=== PATIENT | female | born 1955 | race Caucasian/White ===

== ENCOUNTER → 2020-01-07 08:30 | Outpatient (CLI) | payer OTHER, SELFPAY ==
[2020-01-07 10:08] LABS: Add Manual Diff / Slide Review NO; Basophils Absolute Auto 0 /uL (0-100); Basophils Percent Auto 0.3 % (0-2); Eosinophils Absolute Auto 100 /uL (0-450); Eosinophils Percent Auto 1.4 % (2-4); Hematocrit 39.3 % (36-46); Hemoglobin 13.4 g/dL (12.0-16.0); Lymphocytes Absolute Auto 1600 /uL (1100-4500); Lymphocytes Percent Auto 35.6 % (25-40); Mean Corpuscular HGB Conc 34.1 % (30-36); Mean Corpuscular Hemoglobin 32.6 PG (26-34); Mean Corpuscular Volume 95.5 fL (80-100); Monocytes Absolute Auto 400 /uL (0-900); Monocytes Percent Auto 8.4 % (3-14); Neutrophils Absolute Auto 2400 /uL (1500-7000); Neutrophils Percent Auto 54.3 % (50-75); Platelet Count 112 X10^3/uL (150-400); Red Blood Cell Count 4.11 X10^6/uL (4.0-5.2); Red Cell Distribution Width 13.5 % (11.6-14.8); White Blood Cell Count 4.4 X10^3/uL (4.5-11.0)
[2020-01-07 10:45] LABS: Alanine Aminotransferase 52 IU/L (<35); Albumin 4.3 g/dL (3.5-5.0); Albumin Globulin Ratio 1.2 (1.0-2.8); Alkaline Phosphatase 89 U/L (38-126); Aspartate Aminotransferase 58 IU/L (14-36); BUN Creatinine Ratio 17.1 (6-22); Bilirubin Total 0.9 mg/dL (0.2-1.3); Blood Urea Nitrogen 12 mg/dL (7-17); Calcium 9.5 mg/dL (8.4-10.2); Carbon Dioxide 29 mmol/L (22-32); Chloride 104 mmol/L (98-107); Cholesterol 190 mg/dL (140-199); Estimated Glomerular Filt Rate > 60.0 mL/min (>60); Globulin 3.6 g/dL (1.7-4.1); Glucose 91 mg/dL (80-110); HDL Cholesterol 58 mg/dL (40-60); HEMOLYSIS < 15 (0-50); LDL Cholesterol Calculated 107 mg/dL (<100); Potassium 4.2 mmol/L (3.4-5.1); Sodium 140 mmol/L (137-145); Total Protein 7.9 g/dL (6.3-8.2); Triglycerides 124 mg/dL (35-150)
[2020-01-07 11:01] LABS: TSH w/ Reflex to FT4 2.01 uIU/mL (0.47-4.68)
== END ==
PROVIDERS: Referring Provider Internal Medicine; Visit Provider Internal Medicine
DX: E78.2 Mixed hyperlipidemia (principal); I10 Essential (primary) hypertension; E66.9 Obesity, unspecified
CPT/HCPCS: 36415; 80053; 80061; 84443; 85025

== ENCOUNTER → 2020-02-11 10:32 | Outpatient (CLI) | payer OTHER, SELFPAY ==
--- NOTE | 2020-02-11 | DI.RAD.S_ITS ---
PROCEDURE: XR TOE LT MIN 2V INDICATIONS: LEFT BIG TOE PAIN TECHNIQUE: 3 views of the 1st toe(s) acquired. COMPARISON: None. FINDINGS: Bones: No fractures or dislocations. No suspicious bony lesions. Soft tissues: No suspicious soft tissue densities. IMPRESSION: No trauma found, no evidence of osteomyelitis, source of current pain is not seen. Dictated by: Michael Sal M.D. on 02/11/2020 at 11:26 Approved by: Michael Sal M.D. on 02/11/2020 at 11:27
== END ==
PROVIDERS: PCP Internal Medicine; Referring Provider Internal Medicine; Visit Provider Internal Medicine
DX: S90.112A Contusion of left great toe without damage to nail, initial encounter (principal); M79.675 Pain in left toe(s); X58.XXXA Exposure to other specified factors, initial encounter
CPT/HCPCS: 73660

== ENCOUNTER → 2020-02-14 09:16 | Outpatient (CLI) | payer OTHER, SELFPAY ==
--- NOTE | 2020-02-14 | DI.US.S_ITS ---
PROCEDURE: US ABDOMEN COMPLETE INDICATIONS: ELEVATED LFTS TECHNIQUE: Real-time scanning was performed of the abdominal and retroperitoneal organs, with image documentation. COMPARISON: None. FINDINGS: Liver: Liver is normal in size and homogeneous in echotexture. The main portal vein is patent and measures 1.3 cm. Gallbladder: No findings of gallstones or sludge are seen. The gallbladder wall is not thickened, measuring 3 mm or less. No specific pericholecystic fluid is seen. The sonographic Lebron sign is negative. Biliary ducts: Intrahepatic bile ducts are non-dilated. Extrahepatic bile duct caliber measures 7 mm. Normal is 6-7 mm or less in diameter, or 10 mm or less post-cholecystectomy. Pancreas: Visualized portions of the pancreas are sonographically normal. Spleen: Spleen is normal in size and homogeneous in echotexture. Kidneys: Kidneys are normal in size and echotexture. Right kidney measures 13.5 cm long; left kidney measures 13.2 cm long. No hydronephrosis or nephrolithiasis. No solid masses. The renal cortex measures within normal limits for thickness. Aorta: Visualized aorta is normal in caliber at less than 3 cm. Iliacs: Proximal common iliac arteries are normal in caliber at less than 2.5 cm. IVC: Intrahepatic inferior vena cava is patent. Miscellaneous: No free abdominal fluid. IMPRESSION: The gallbladder demonstrates a normal sonographic appearance. No biliary dilatation is seen. Normal appearing liver by ultrasound, without fatty infiltration. Dictated by: Josr Herrera M.D. on 02/14/2020 at 8:56 Approved by: Josr Herrera M.D. on 02/14/2020 at 8:56
== END ==
PROVIDERS: PCP Internal Medicine; Referring Provider Internal Medicine; Visit Provider Internal Medicine
DX: R79.89 Other specified abnormal findings of blood chemistry (principal)
CPT/HCPCS: 76700

== ENCOUNTER → 2020-06-17 14:13 | Outpatient (CLI) | payer OTHER, SELFPAY ==
[2020-06-17] MEDS: COVID-19 VACC #1, MRNA(MOD) 100 MCG/0.5 ML VIAL IM (14:18)
== END ==
PROVIDERS: PCP Internal Medicine; Visit Provider Internal Medicine
DX: Z23 Encounter for immunization (principal)
CPT/HCPCS: 0011A; 91301

== ENCOUNTER → 2020-07-15 13:37 | Outpatient (CLI) | payer OTHER, SELFPAY ==
[2020-07-15] MEDS: COVID-19 VACC #2, MRNA(MOD) 100 MCG/0.5 ML VIAL IM (13:41)
== END ==
PROVIDERS: PCP Internal Medicine; Visit Provider Internal Medicine
DX: Z23 Encounter for immunization (principal)
CPT/HCPCS: 0012A; 91301

== ENCOUNTER 2020-09-09 05:45 | Emergency (ER) | payer OTHER, SELFPAY ==
[2020-09-09] VITALS (8 sets, daily range): BP systolic 128–188; BP diastolic 77–118; PULSE 82–98; RESP 16–20; TEMP 36.6; O2SAT 94–100
--- NOTE | 2020-09-09 05:54 | ED_ITS ---
HPI - Allergic Reaction <Jaziel Alves DO - Last Filed: 09/12/20 05:08> General Chief complaint: Allergic Reaction Stated complaint: trouble breathing, lips are swollen Time Seen by Provider: 09/09/20 05:53 Source: patient Mode of arrival: Ambulatory Limitations: no limitations History of Present Illness HPI narrative: 64-year-old female nonsmoker with history of allergies with unknown triggers for quite some time presents with a chief complaint of swelling of her lower lip and a fullness in her throat that has affected her voice and makes it difficult to swallow. She has some pruritic hives under her left flank but otherwise no rash. She has no chest pain or shortness of breath. She has had some postnasal drip and a cough. She has no abdominal pain, nausea, vomiting or diarrhea. She denies any dysuria, frequency or urgency. She denies any new medications, lotions or soaps. She took a does loratadine at home which as provided little relief MD complaint: allergic reaction Onset (ago): hour(s) Exposure: unknown Symptoms: rash, itching, lip swelling and difficulty swallowing Severity: moderate Related Data Previous Rx's Medication Instructions Recorded epinephrine [EpiPen 2-Mahesh] 0.3 mg IM Q5-15M PRN #2 ea 09/09/20 prednisone 20 mg PO DAILY #5 tab 09/09/20 Allergies Allergy/AdvReac Type Severity Reaction Status Date / Time No Known Drug Allergies Allergy Verified 09/09/20 07:10 Review of Systems <DO Melony Moraes Last Filed: 09/12/20 05:08> Constitutional Constitutional: Denies chills, Denies fatigue, Denies fever(s), Denies frequent falls, Denies lethargy and Denies weakness Eyes Eyes: Denies change in vision, Denies eye discharge, Denies irritation and Denies loss of vision ENT Ears, Nose, Mouth, and Throat: Denies change in voice, Denies dizziness, Reports lip swelling, Denies neck pain, Denies sore throat and Reports throat swelling Cardiovascular Cardiovascular: Denies chest pain, Denies irregular heart rhythm, Denies lightheadedness, Denies palpitations, Denies dyspnea, Denies dyspnea on exertion and Denies orthopnea Respiratory Respiratory: Denies cough, Denies dyspnea, Denies dyspnea on exertion and Denies wheezing Gastrointestinal Gastrointestinal: Denies abdominal pain, Denies change in bowel habits, Denies diarrhea, Denies nausea and Denies vomiting Musculoskeletal Musculoskeletal: Denies neck pain and Denies numbness Integumentary/Breasts Skin/Breast: Denies pruritus, Denies erythema, Denies rash and Denies wounds Neurologic Neurologic: Denies behavioral changes, Denies confusion, Denies dizziness, Denies frequent falls, Denies loss of vision, Denies numbness and Denies weakness Psychiatric Psychiatric: Denies anxiety, Denies behavioral changes, Denies confusion, Denies depression, Denies homicidal ideation and Denies suicidal ideation Endocrine Endocrine: Denies fatigue, Denies flushing and Denies palpitations Hematologic/Lymphatic Hematologic/Lymphatic: Denies easy bruising Allergic/Immunologic Allergic/Immunologic: Denies urticaria, Reports lip swelling, Reports throat swelling and Denies wheezing Patient History <Jaziel Alves DO - Last Filed: 09/12/20 05:08> Social History Smoking Status: Never smoker Smoking Status: Never smoker alcohol intake frequency: 0-2 drinks per day Substance Use Type: does not use Exam <Jaziel Alves DO - Last Filed: 09/12/20 05:08> Narrative Exam Narrative: GENERAL: [64] year old patient appears stated age. Well- developed patient, in mild distress. HEAD: Atraumatic. Normocephalic. EYES: Pupils equal round and reactive. Extraocular motions intact. No scleral icterus. No injection or drainage. ENT: Lower lip swelling, mild uvular swelling without peritonsillar swelling. Patient managing her airway and controlling secretions without difficulty Nose without bleeding, purulent drainage. Throat without erythema, tonsillar hypertrophy or exudate. Airway patent. NECK: Trachea midline. Non tender CARDIOVASCULAR: Regular rate and rhythm without murmurs, gallops, or rubs. RESPIRATORY: Clear to auscultation. Breath sounds equal bilaterally. No wheezes, rales, or rhonchi. GASTROINTESTINAL: Abdomen soft, non-tender, nondistended. EXTREMITIES: No edema or joint tenderness. BACK: Nontender without deformity or crepitance. No flank tenderness. NEURO: AOx3. SKIN: Minimal erythematous and pruritic rash in left axilla No rash or erythema of visible areas Initial Vital Signs Initial Vital Signs: Vital Signs Temperature 98 F 06/23/21 06:00 Pulse Rate 98 H 09/09/20 06:00 Respiratory Rate 20 09/09/20 06:00 Blood Pressure 188/118 H 09/09/20 06:00 Pulse Oximetry 96 09/09/20 06:00 <DO Melony Narvaez Last Filed: 09/09/20 08:12> Initial Vital Signs Initial Vital Signs: Vital Signs Temperature 98 F 09/09/20 06:00 Pulse Rate 98 H 09/09/20 06:00 Respiratory Rate 20 09/09/20 06:00 Blood Pressure 188/118 H 09/09/20 06:00 Pulse Oximetry 96 09/09/20 06:00 Course <Jaziel Alves DO - Last Filed: 09/12/20 05:08> Orders Ordered: Discontinued Medications Diphenhydramine HCl (Diphenhydramine 50 Mg/Ml Vial) 25 mg IV NOW ONE Stop: 09/09/20 05:54 Last Admin: 09/09/20 06:07 Dose: 25 mg Documented by: ZEINA Epinephrine HCl (Epinephrine 1 Mg/Ml) 0.5 mg IM NOW ONE Stop: 09/09/20 05:54 Last Admin: 09/09/20 06:04 Dose: 0.5 mg Documented by: ZEINA Famotidine (Famotidine 20 Mg/2 Ml Vial) 20 mg IV NOW MIKE Last Admin: 09/09/20 06:08 Dose: 20 mg Documented by: ZEINA Methylprednisolone (Methylprednisolone 125 Mg/2 Ml Vial) 125 mg IV NOW ONE Stop: 09/09/20 05:54 Last Admin: 09/09/20 06:08 Dose: 125 mg Documented by: ZEINA Vital Signs Vital signs: Vital Signs - 8 hr 09/09/20 06:00 09/09/20 06:20 09/09/20 06:30 Temperature 98 F Pulse Rate 90 87 91 H Respiratory Rate 20 20 20 Blood Pressure 167/107 H 177/89 H 173/86 H Pulse Oximetry 97 97 97 <DO Melony Narvaez Last Filed: 09/09/20 08:12> Orders Ordered: Discontinued Medications Diphenhydramine HCl (Diphenhydramine 50 Mg/Ml Vial) 25 mg IV NOW ONE Stop: 09/09/20 05:54 Last Admin: 09/09/20 06:07 Dose: 25 mg Documented by: ZEINA Epinephrine HCl (Epinephrine 1 Mg/Ml) 0.5 mg IM NOW ONE Stop: 09/09/20 05:54 Last Admin: 09/09/20 06:04 Dose: 0.5 mg Documented by: ZEINA Famotidine (Famotidine 20 Mg/2 Ml Vial) 20 mg IV NOW MIKE Last Admin: 09/09/20 06:08 Dose: 20 mg Documented by: ZEINA Methylprednisolone (Methylprednisolone 125 Mg/2 Ml Vial) 125 mg IV NOW ONE Stop: 09/09/20 05:54 Last Admin: 09/09/20 06:08 Dose: 125 mg Documented by: ZEINA Vital Signs Vital signs: Vital Signs - 8 hr 09/09/20 06:00 09/09/20 06:20 09/09/20 06:30 Temperature 98 F Pulse Rate 90 87 91 H Respiratory Rate 20 20 20 Blood Pressure 167/107 H 177/89 H 173/86 H Pulse Oximetry 97 97 97 <Kanika Gaytan, DO - Last Filed: 09/09/20 08:12> MDM Narrative Medical decision making narrative: I received sign-out from Dr. Alves I have seen evaluated patient myself. Her lip looks mildly swollen she says she feels much better. No more throat changes or voice changes. She feels ready and able to go home. Unclear what she is allergic to. She is given prescriptions for epinephrine and prednisone. Discharge Plan Departure Patient Disposition: Home Clinical Impression: Allergic reaction Qualifiers: Encounter type: initial encounter Qualified Code(s): T78.40XA - Allergy, unspecified, initial encounter Instructions: DI for Anaphylaxis Activity Restrictions/Additional Instructions: *You have been diagnosed with [allergic reaction ] *What to do: *Please continue to take your regular medications as directed. [ ] New medication prescriptions sent to your pharmacy: [ ] [x ] New medication written as a paper prescription [ ] No new medications given *Please follow up with your primary care provider in 2-3 days, call for an appointment. Let them know you were seen in the Emergency Department and that we ask that you be seen in follow up. We will electronically transmit a record of today's note if your PCP is in our system *If you do not have a primary care provider please contact the [facility] Resource line at [phone]. They will ask some questions about your medical history and help get you set up with a doctor in the community. *Return to Emergency Department if you should have any new, worsening or concerning symptoms, such as [fever greater than 101 F, shaking chills, worsening pain, persistent vomiting or other bothersome symptoms] Prescriptions: New prednisone 20 mg tablet 20 mg PO DAILY Qty: 5 RF: 0 epinephrine [EpiPen 2-Mahesh] 0.3 mg/0.3 mL auto-injector 0.3 mg IM Q5-15M PRN (Reason: anaphylaxis) Qty: 2 RF: 0 Referrals: Horacio Padilla MD [Primary Care Provider] -
[2020-09-09] MEDS: EPINEPHrine 1 MG/ML 0.5 MG IM (06:04)
[2020-09-09] MEDS: diphenhydrAMINE 50 MG/ML VIAL 25 MG IV (06:07)
[2020-09-09] MEDS: FAMOTIDINE 20 MG/2 ML VIAL IV (06:08)
[2020-09-09] MEDS: methylPREDNISolone 125 MG/2 ML VIAL IV (06:08)
--- NOTE | 2020-09-09 07:26 | PC.NURSE ---
pts managing secretions,states that she is having no difficulty swallowing but it is normal for her to feel like there is something in her throat. Pts lips are still swollen but she tells me that they are less swollen.
== END 2020-09-09 08:10 | disposition home or self-care (01) ==
PROVIDERS: Emergency Provider Emergency Medicine; PCP Internal Medicine
DX: T78.40XA Allergy, unspecified, initial encounter (principal); R21 Rash and other nonspecific skin eruption
CPT/HCPCS: 36415; 96372; 96374; 96375; 99284; J0171; J1200; J2930